=== PATIENT | female | born 1965 | race Caucasian/White ===

== ENCOUNTER 2021-03-08 16:29 | Inpatient (IN) | payer BC, MEDICAID ==
[2021-03-08 16:18] LABS: PCO2 ARTERIAL,POC 32 mmHg (35-48)
[~2021-03-08 16:29] MED LIST: Pantoprazole 40 MG Vial IVPUSH ONE; Sodium Chloride 0.9% 1,000 ML IV ONE; Sodium Chloride 0.9% 10 ML Syringe FLUSH PRN
[2021-03-08] MEDS ORDERED: Piperacillin/Tazobactam 4.5 GM in Sodium Chloride 0.9% 100 ML IV SCH (16:45)
[2021-03-08 16:54] LABS: CHLORIDE,CL 99 mmol/L (98-107); SODIUM,NA 132 mmol/L (136-145)
[2021-03-08 17:02] LABS: ANION GAP 21.1 mmol/L (5-15)
[2021-03-08] MEDS ORDERED: Insulin Regular, Human 10 UNIT in Dextrose 10% in Water 500 ML IV ONE ×2 (17:03)
[2021-03-08] MEDS ORDERED: Sodium Chloride 0.9% 1,000 ML IV ONE (17:03)
[2021-03-08 17:04] LABS: BARBITURATE SCREEN,URINE NEGATIVE (NEGATIVE); BENZODIAZEPINES SCREEN,URINE NEGATIVE (NEGATIVE); BUPRENORPHINE SCREEN,URINE NEGATIVE (NEGATIVE); METHAMPHETAMINE SCREEN, URINE NEGATIVE (NEGATIVE); THC SCREEN,URINE 50 NG/ML NEGATIVE (NEGATIVE)
[2021-03-08] MEDS ORDERED: Piperacillin/Tazobactam 4.5 GM in Sodium Chloride 0.9% 100 ML IV ONE (17:05)
[2021-03-08] MEDS ORDERED: 50% Dextrose in Water 50 ML Syringe IVPUSH PRN (17:37)
[2021-03-08] MEDS ORDERED: Insulin Regular, Human 100 Units/ML 3 ML Vial IVPUSH ONE ×2 (17:37→20:20)
[2021-03-08] MEDS ORDERED: Glucagon,Human Recombinant 1 MG Vial IM PRN (17:37)
[2021-03-08] MEDS: Sodium Chloride 0.9% 1,000 ML IV SCH (19:59)
[2021-03-08] MEDS ORDERED: Heparin Sodium 5,000 Units/ML Vial SUBCUT SCH (20:00)
[2021-03-08] MEDS: Vancomycin 125 MG Cap PO SCH (20:03)
[2021-03-08] MEDS ORDERED: Insulin Glarg,Human.Rec.Analog 100 Unit/ML SUBCUT SCH (20:09)
[2021-03-08 20:19] LABS: ANION GAP 19.3 mmol/L (5-15)
[2021-03-08 22:56] LABS: ANION GAP 18.8 mmol/L (5-15)
[2021-03-09] MEDS: Sodium Chloride 0.9% 1,000 ML IV SCH ×2 (01:51→05:38)
[2021-03-09 06:10] LABS: ANION GAP 18.2 mmol/L (5-15)
[2021-03-09] MEDS: Vancomycin 125 MG Cap PO SCH ×4 (08:13→19:31)
[2021-03-09] MEDS ORDERED: Albuterol/Ipratropium 3.0-0.5 MG/3 ML Neb Soln NEB PRN (08:28)
[2021-03-09] MEDS ORDERED: 50% Dextrose in Water 50 ML Syringe IVPUSH PRN (08:29)
[2021-03-09] MEDS ORDERED: Glucagon,Human Recombinant 1 MG Vial IM PRN (08:29)
[2021-03-09] MEDS: Nicotine 14 MG/24 Hr Patch TRDERM SCH (11:27)
[2021-03-09] MEDS: Insulin Lispro 100 Units/ML 3 ML Vial SUBCUT SCH ×2 (11:57→17:51)
[2021-03-09] MEDS ORDERED: Furosemide 40 MG/4 ML VIAL IV ONE (15:20)
[2021-03-09] MEDS ORDERED: Insulin Glarg,Human.Rec.Analog 100 Unit/ML SUBCUT SCH (20:00)
[2021-03-10] MEDS: Sodium Chloride 0.9% 1,000 ML IV SCH ×2 (00:30→18:27)
[2021-03-10 07:51] LABS: ANION GAP 16.5 mmol/L (5-15)
[2021-03-10] MEDS: Nicotine 14 MG/24 Hr Patch TRDERM SCH (08:43)
[2021-03-10] MEDS: Aspirin 81 MG Tab.Chew PO SCH (08:44)
[2021-03-10] MEDS: Vancomycin 125 MG Cap PO SCH ×2 (08:44→11:41)
[2021-03-10] MEDS: Insulin Lispro 100 Units/ML 3 ML Vial SUBCUT SCH ×3 (08:45→17:42)
[2021-03-10 14:17] LABS: ANION GAP 16.9 mmol/L (5-15)
[2021-03-10] MEDS ORDERED: Insulin Glarg,Human.Rec.Analog 100 Unit/ML SUBCUT SCH (20:00)
[2021-03-10] MEDS: Acetaminophen 500 MG Tab PO PRN (20:59)
[2021-03-11] MEDS: Sodium Chloride 0.9% 1,000 ML IV SCH (06:41)
[2021-03-11] MEDS: Nicotine 14 MG/24 Hr Patch TRDERM SCH (08:31)
[2021-03-11] MEDS: Insulin Lispro 100 Units/ML 3 ML Vial SUBCUT SCH ×3 (08:32→17:58)
[2021-03-11] MEDS: Aspirin 81 MG Tab.Chew PO SCH (08:32)
[2021-03-11 08:42] LABS: ANION GAP 17.5 mmol/L (5-15)
[2021-03-11] MEDS: oxyCODONE 5 MG Tab PO PRN ×2 (09:51→20:56)
[2021-03-11] MEDS: Acetaminophen 500 MG Tab PO PRN (09:52)
[2021-03-11] MEDS: Insulin Glarg,Human.Rec.Analog 100 Unit/ML SUBCUT SCH (21:01)
[2021-03-12] MEDS: Nicotine 14 MG/24 Hr Patch TRDERM SCH (07:57)
[2021-03-12] MEDS: Aspirin 81 MG Tab.Chew PO SCH (07:58)
[2021-03-12] MEDS: Insulin Lispro 100 Units/ML 3 ML Vial SUBCUT SCH ×3 (07:59→17:31)
[2021-03-12 08:48] LABS: ANION GAP 16.4 mmol/L (5-15)
[2021-03-12] MEDS ORDERED: Polyethylene Glycol 3350 Powder 17 GM Packet PO PRN (11:43)
[2021-03-12] MEDS ORDERED: Loratadine 10 MG Tab PO PRN (11:44)
[2021-03-12] MEDS ORDERED: Pramipexole 0.5 MG Tab PO PRN (12:45)
[2021-03-12] MEDS ORDERED: Albuterol HFA 18 Gm Inhaler INH PRN (12:45)
[2021-03-12] MEDS: Simethicone 80 MG Tab.Chew PO PRN ×2 (13:41→19:25)
[2021-03-12] MEDS: oxyCODONE 5 MG Tab PO PRN (17:14)
[2021-03-12] MEDS: Insulin Glarg,Human.Rec.Analog 100 Unit/ML SUBCUT SCH (21:03)
[2021-03-13] MEDS: Simethicone 80 MG Tab.Chew PO PRN ×2 (06:25→13:14)
[2021-03-13] MEDS ORDERED: Levothyroxine 150 MCG Tab PO SCH (07:00)
[2021-03-13] MEDS ORDERED: Sertraline 50 MG Tab PO SCH (08:00)
[2021-03-13] MEDS: Nicotine 14 MG/24 Hr Patch TRDERM SCH (08:06)
[2021-03-13] MEDS: Aspirin 81 MG Tab.Chew PO SCH (08:06)
[2021-03-13] MEDS: Insulin Lispro 100 Units/ML 3 ML Vial SUBCUT SCH ×2 (08:14→11:20)
[2021-03-13 10:02] VITALS: BP 136/56; PULSE 48
== END 2021-03-13 14:12 | disposition home or self-care (01) | DRG 871 ==
LOC: VM.ED 16:29 → VM.MS 17:56
PROVIDERS: ADMIT Family Medicine; ATTEND Family Medicine
DX: A41.9 Sepsis, unspecified organism (principal); N17.0 Acute kidney failure with tubular necrosis; E11.00 Type 2 diabetes mellitus with hyperosmolarity without nonketotic hyperglycemic-hyperosmolar coma (NKHHC); K51.00 Ulcerative (chronic) pancolitis without complications; E78.00 Pure hypercholesterolemia, unspecified; I10 Essential (primary) hypertension; E03.9 Hypothyroidism, unspecified; F17.200 Nicotine dependence, unspecified, uncomplicated; R65.20 Severe sepsis without septic shock; E86.0 Dehydration; E11.65 Type 2 diabetes mellitus with hyperglycemia; R74.01 Elevation of levels of liver transaminase levels; G47.33 Obstructive sleep apnea (adult) (pediatric); E78.5 Hyperlipidemia, unspecified; E66.09 Other obesity due to excess calories; M32.8 Other forms of systemic lupus erythematosus; G25.81 Restless legs syndrome; I12.9 Hypertensive chronic kidney disease with stage 1 through stage 4 chronic kidney disease, or unspecified chronic kidney disease; E11.22 Type 2 diabetes mellitus with diabetic chronic kidney disease; M32.9 Systemic lupus erythematosus, unspecified; K75.9 Inflammatory liver disease, unspecified; Z88.8 Allergy status to other drugs, medicaments and biological substances; Z87.01 Personal history of pneumonia (recurrent); Z90.49 Acquired absence of other specified parts of digestive tract; Z79.4 Long term (current) use of insulin
CPT/HCPCS: 36415; 36600; 51702; 51798; 70450; 71045; 74176; 80048; 80053; 80305-QW; 80307; 81001; 82140; 82248; 82550; 82803; 82947; 83010; 83605; 83615; 83690; 83735; 84295; 84443; 84484; 85018; 85025; 85610; 86140; 86850; 86900; 86901; 87040; 87045; 87046; 87449; 87493; 87899; 93005; 93010; 96365; 96375; 99284; 99285-25; A9270-GY; C9113; J1815-GY; J1940; J2543; J7030

== ENCOUNTER 2021-09-15 06:28 | Day surgery (SDC) | payer MEDICAID ==
[~2021-09-15 06:28] MED LIST changes: +Lactated Ringers 1,000 ML IV SCH; -Pantoprazole 40 MG Vial IVPUSH ONE; -Sodium Chloride 0.9% 1,000 ML IV ONE
[2021-09-15] MEDS ORDERED: Lactated Ringers 1,000 ML IV SCH (07:00)
[2021-09-15] MEDS ORDERED: fentaNYL 100 MCG/2 ML SDV ONE (07:48)
[2021-09-15] MEDS ORDERED: Midazolam 1 MG/ML 2 ML SDV ONE (07:49)
[2021-09-15] MEDS ORDERED: Propofol 200 MG/20 ML SDV ONE (07:49)
[2021-09-15 08:57] VITALS: BP 132/75; PULSE 76
== END 2021-09-15 09:30 | disposition home or self-care (01) ==
LOC: VM.SDS 06:28
PROVIDERS: ATTEND Student in an Organized Health Care Education/Training Program
DX: D12.2 Benign neoplasm of ascending colon (principal); I10 Essential (primary) hypertension; G47.33 Obstructive sleep apnea (adult) (pediatric); E03.9 Hypothyroidism, unspecified; E11.9 Type 2 diabetes mellitus without complications; G25.81 Restless legs syndrome; E66.9 Obesity, unspecified; E78.2 Mixed hyperlipidemia; F17.210 Nicotine dependence, cigarettes, uncomplicated; Z88.8 Allergy status to other drugs, medicaments and biological substances; Z79.4 Long term (current) use of insulin; Z98.890 Other specified postprocedural states; Z79.899 Other long term (current) drug therapy; Z68.27 Body mass index [BMI] 27.0-27.9, adult
CPT/HCPCS: 00811; 82947; J2250; J2704; J3010; J7120

== ENCOUNTER 2021-11-11 10:37 | Emergency (ER) | payer MEDICAID ==
[2021-11-11] MEDS ORDERED: Sodium Chloride 0.9% 10 ML Syringe FLUSH PRN (10:59)
[2021-11-11 11:33] LABS: ANION GAP 13.1 mmol/L (5-15)
[2021-11-11] MEDS ORDERED: Iopamidol 612 MG/ML 100 ML Bottle IVPUSH ONE (11:58)
[2021-11-11 13:11] VITALS: BP 127/77; PULSE 80
== END 2021-11-11 12:56 | disposition home or self-care (01) ==
LOC: VM.ED 10:37
DX: K20.90 Esophagitis, unspecified without bleeding (principal); J45.909 Unspecified asthma, uncomplicated; I10 Essential (primary) hypertension; E11.9 Type 2 diabetes mellitus without complications; F17.210 Nicotine dependence, cigarettes, uncomplicated; E66.9 Obesity, unspecified; Z68.27 Body mass index [BMI] 27.0-27.9, adult; Z88.8 Allergy status to other drugs, medicaments and biological substances; Z79.899 Other long term (current) drug therapy; Z79.82 Long term (current) use of aspirin; Z79.4 Long term (current) use of insulin; Z79.84 Long term (current) use of oral hypoglycemic drugs; Z90.49 Acquired absence of other specified parts of digestive tract
CPT/HCPCS: 36415; 70491; 80053; 85025; 86140; 87651-QW; 99283; Q9967

== ENCOUNTER 2024-06-08 14:54 | Emergency (ER) | payer MEDICAID ==
[2024-06-08 15:36] VITALS: BP 157/87; PULSE 94
== END 2024-06-08 15:26 | disposition home or self-care (01) ==
LOC: VM.ED 14:54 → SUPCPDRO 14:54 → VM.ED 15:26
DX: R13.10 Dysphagia, unspecified (principal); I10 Essential (primary) hypertension; E78.00 Pure hypercholesterolemia, unspecified; E03.9 Hypothyroidism, unspecified; E11.9 Type 2 diabetes mellitus without complications; E66.9 Obesity, unspecified; Z68.27 Body mass index [BMI] 27.0-27.9, adult; Z79.899 Other long term (current) drug therapy; Z79.4 Long term (current) use of insulin; Z79.82 Long term (current) use of aspirin; Z79.890 Hormone replacement therapy; Z88.8 Allergy status to other drugs, medicaments and biological substances
CPT/HCPCS: 99283

== ENCOUNTER 2025-01-13 06:35 | Emergency (ER) | payer MEDICAID ==
[2025-01-13] MEDS ORDERED: Sodium Chloride 0.9% 10 ML Syringe FLUSH PRN (06:45)
[2025-01-13] MEDS: methylPREDNISolone Sodium Succinate 125 MG/2 ML SDV IVPUSH ONE (06:57)
[2025-01-13] MEDS: diphenhydrAMINE 50 MG/ML SDV IVPUSH ONE (06:59)
[2025-01-13] MEDS: Ketorolac 30 MG/ML SDV IVPUSH ONE (07:01)
[2025-01-13 07:45] VITALS: PULSE 89
[2025-01-13 08:11] VITALS: BP 175/84
== END 2025-01-13 08:12 | disposition home or self-care (01) ==
LOC: VM.ED 06:35
DX: R22.1 Localized swelling, mass and lump, neck (principal); I10 Essential (primary) hypertension; E78.00 Pure hypercholesterolemia, unspecified; E11.9 Type 2 diabetes mellitus without complications; E03.9 Hypothyroidism, unspecified; Z90.49 Acquired absence of other specified parts of digestive tract; Z79.84 Long term (current) use of oral hypoglycemic drugs; Z88.8 Allergy status to other drugs, medicaments and biological substances; Z79.82 Long term (current) use of aspirin; Z79.899 Other long term (current) drug therapy; Z79.4 Long term (current) use of insulin
CPT/HCPCS: 87651; 96374; 96375; 99283-25; 99284; J1200; J1885; J2919